=== PATIENT | female | born 1950 | race Caucasian/White ===

== ENCOUNTER 2020-12-21 16:00 | Outpatient (RCR) | payer OTHER, SELFPAY | END 2021-02-01 14:11 | disposition other institution (70) | LOC: HO.PTCHIC 16:00 | PROVIDERS: PCP Internal Medicine; Visit Provider Internal Medicine | DX: M54.41 Lumbago with sciatica, right side (principal) | CPT/HCPCS: 97014; 97110; 97140; 97162; 97530 ==

== ENCOUNTER 2024-03-26 14:00 | Outpatient (RCR) | payer OTHER, SELFPAY | END 2024-04-02 07:33 | disposition home or self-care (01) | LOC: HO.PTCHIC 14:00 | PROVIDERS: PCP Family Medicine; Visit Provider Specialist/Technologist Athletic Trainer | DX: M76.822 Posterior tibial tendinitis, left leg (principal) | CPT/HCPCS: 97110; 97140; 97161 ==

== ENCOUNTER 2025-05-21 13:00 | Outpatient (RCR) | payer OTHER, SELFPAY | END 2025-05-25 08:07 | disposition home or self-care (01) | LOC: HO.PTCHIC 13:00 | PROVIDERS: PCP Family Medicine; Visit Provider Orthopaedic Surgery | DX: Z47.1 Aftercare following joint replacement surgery (principal); Z96.651 Presence of right artificial knee joint | CPT/HCPCS: 97110; 97140; 97162 ==